=== PATIENT | female | born 2000 | race Caucasian/White ===

== ENCOUNTER 2022-05-08 14:43 | Outpatient (REF) | payer MEDICAID, SELFPAY ==
[2022-05-10 11:01] LABS: COVID-19 RT-PCR UVMMC Result Negative (Negative)
== END 2022-05-08 14:44 | disposition home or self-care (01) ==
LOC: LBN 14:43
PROVIDERS: Visit Provider Nurse Practitioner Family
DX: Z20.822 Contact with and (suspected) exposure to COVID-19 (principal); J06.9 Acute upper respiratory infection, unspecified
CPT/HCPCS: U0003

== ENCOUNTER 2023-08-05 17:36 | Emergency (ER) | payer MEDICAID, SELFPAY ==
[2023-08-05 17:38] VITALS: PULSE 111; RESP 15; TEMP 37.1; O2SAT 99
[2023-08-05 19:01] LABS: Abs Immature Grans 0.03 10^3/uL (0.0-0.06); Absolute Basophil Count 0.06 10^3/uL (0.0-0.2); Absolute Eosinophil Count 0.17 10^3/uL (0.0-0.7); Absolute Lymphocyte Count 2.08 10^3/uL (1.2-3.4); Absolute Monocyte Count 0.33 10^3/uL (0.1-0.8); Absolute Neutrophil Count 5.05 10^3/uL (1.2-6.7); Basophils % 0.8; Eosinophils % 2.2; HGB 13.7 g/dL (11.2-15.7); Immature Grans % 0.4; Lymphocytes % 26.9; MCH 29.6 pg (27.0-33.0); MCHC 34.3 % (32.0-36.0); MCV 86 fL (80-95); MPV 10.6 fL (8.0-11.0); Monocytes % 4.3; Neutrophils % 65.4; Platelet Count 292 10^3/uL (130-400); RBC 4.63 10^6/uL (3.93-5.22); RDW 12.3 % (11.7-14.6); RDW-SD 38.8 fL; WBC 7.72 10^3/uL (4.4-10.8)
[2023-08-05 19:22] LABS: ALT 22 U/L (14-59); AST 16 U/L (15-37); Albumin 4.4 g/dL (3.4-5.0); Alkaline Phosphatase 76 U/L (46-116); Anion Gap 13.7 mmol/L (3-11); BUN 10 mg/dL (7-18); Bilirubin, Total 0.5 mg/dL (0.2-1.0); CO2 22.3 mmol/L (21.0-32.0); CREATININE 0.8 mg/dL (0.55-1.02); Calcium 9.7 mg/dL (8.5-10.1); Chloride 104 mmol/L (98-107); Estimated GFR 106.11 (mL/min/1.73m2); Glucose 95 mg/dL (74-106); HCG Quant, Pregnancy 62 mIU/mL (1-3); Potassium 3.1 mmol/L (3.5-5.1); Sodium 140 mmol/L (136-145); Total Protein 8.4 g/dL (6.4-8.2)
--- NOTE | 2023-08-05 19:59 | W.ED.GENAD ---
Discharge Plan Disposition Patient Disposition: Home Discharge Details Clinical Impression: Positive blood test Primary Care Provider: Amy Motley ED Provider: Ford Alberto Home Meds and New Rx's Prescriptions: No Action escitalopram oxalate [Lexapro] 20 mg tablet 20 mg PO DAILY Discharge Instructions Instructions: (ED) Additional Instructions: It is very important that you start vitamins right away and take as directed on packaging. We have placed a referral into [facility] but you may contact them and inform them of your positive test so they can arrange appropriate care As discussed if you decide to stop your Lexapro please contact your primary care provider so that this can be done safely. Referrals: [facility] [Provider Group] (Please call the office and inform them of your positive test for arrangement of further care) Discharge Data Discharge Date/Time-TO BE ENTERED AT DEPARTURE: 08/05/23 20:07 Medical Decision Making Patient presenting to the emergency department due to having positive test. She states that she has taken to test prior to arrival that were both positive. She states approximately 4 weeks ago she had a abnormal. With only light bleeding. Over the past week she states she has been more emotional, had increased breast tenderness, and today started having some nausea during eating. Patient denies any vaginal bleeding or discharge, denies all other symptoms. Physical exam is unremarkable. Patient denies any pain or discomfort. Bedside ultrasound was utilized and it did appear that something was in the uterus but difficult to see. Given patient having abnormal. And new we will check blood work. Reviewed patient's labs and patient did have slightly low potassium which she states she will increase dietary intake, labs otherwise nonworrisome. Patient did have hCG of 62 so I estimate that she has between 2 and 3 weeks along given good reason for not being able to see much on ultrasound. Discussed findings with patient which she was appropriately excited. Did go over that she should start vitamins. Patient did ask about her Lexapro. She states that she has not taken it for the past 3 days. I did recommend that she discuss this with primary care provider as we typically would taper medication but she stated she had stopped cold turkey in the past and did not want to take any further medications while . I still recommended discussing with primary care provider. Patient placed upon follow-up list with [facility] to establish care. After discussion of diagnosis and plan of care patient has no further needs, questions, or concerns and states clear understanding to return to the emergency department for any worsening symptoms. This documentation was generated using [employer] dictation system, please disregard any oddities of phrase or misspellings. Lab Data Lab results reviewed: Yes I reviewed the patient's lab results. HPI General Mode of arrival: ambulatory. Date/Time Provider Initiated Documentation: 08/05/23 17:55. Limitations to Documentation: no limitations. Information obtained by: patient and RN notes reviewed. History of Present Illness 23 year old F presents to the emergency department with the chief complaint of Positive test, Patient started experiencing this hour(s) (1) Patient did receive the following treatments prior to arrival, none Related Data Home Medications Medication Instructions Recorded Confirmed escitalopram oxalate 20 mg tablet 20 mg PO DAILY 08/05/23 08/05/23 (Lexapro) Allergies Allergy/AdvReac Type Severity Reaction Status Date / Time amoxicillin Allergy Mild Skin Rash Unverified 08/05/23 17:49 General Stated Complaint: [employer]PRENTICE JEANETTE: 4 Review of Systems Gastrointestinal Gastrointestinal: Reports nausea and Denies vomiting Genitourinary Genitourinary: Reports as per HPI, Denies abnormal vaginal bleeding, Denies hematuria, Denies dysuria, Denies pelvic pain, Denies urinary incontinence and Denies vaginal discharge PFSH All Active Problems (Updated 08/05/23 @ 20:02 by Ford Alberto NP) Positive blood test (Acute) Social History Smoking/Tobacco Use Status: Never Smoking risk assessment performed?: Yes Alcohol Intake: never Drug use: Never Substance use type: does not use Do you feel safe at home: Yes Do you feel safe in your relationship?: Yes Exam Const General: cooperative, no acute distress and not ill appearing Orientation: alert, awake and oriented x3 HENMT Mouth: moist mucous membranes Resp Effort & Inspection: normal respiratory effort, able to speak in complete sentences and no respiratory distress GI Inspection: normal to inspection Palpation: soft, not firm, no guarding and nontender Neuro General: patient alert, patient awake, patient oriented x3 and moves all extremities Course Vital Signs Vital signs: Vital Signs Temperature 37.1 C 08/05/23 17:38 Pulse 111 H 08/05/23 17:38 Respiratory Rate 15 08/05/23 17:38 Pulse Oximetry 99 08/05/23 17:38 Temperature 37.1 C 08/05/23 17:38 Temperature Source Temporal Artery Scan 08/05/23 17:38 Pulse 111 H 08/05/23 17:38 Respiratory Rate 15 08/05/23 17:38 Respiratory Effort Normal 08/05/23 17:45 Blood Pressure Position Sitting 08/05/23 17:38 Pulse Oximetry 99 08/05/23 17:38 Oxygen Delivery Method Room Air 08/05/23 17:38 Oxygen Flow Rate 0 08/05/23 17:38 Pain Level 0 08/05/23 17:38 Lab/Test Results Lab/Test Results: Laboratory Tests Range/Units 08/05/23 18:21 WBC (4.4-10.8) 10^3/uL 7.72 RBC (3.93-5.22) 10^6/uL 4.63 Hgb (11.2-15.7) g/dL 13.7 Hct (36.0-46.0) % 40.0 MCV (80-95) fL 86 MCH (27.0-33.0) pg 29.6 MCHC (32.0-36.0) % 34.3 RDW (11.7-14.6) % 12.3 Plt Count (130-400) 10^3/uL 292 MPV (8.0-11.0) fL 10.6 Immature Gran % 0.4 Neutrophils % 65.4 Lymphocytes % 26.9 Monocytes % 4.3 Eosinophils % 2.2 Basophils % 0.8 Nucleated RBC % (0.0-0.3) % 0.0 Absolute Neutrophils (1.2-6.7) 10^3/uL 5.05 Absolute Lymphocytes (1.2-3.4) 10^3/uL 2.08 Absolute Monocytes (0.1-0.8) 10^3/uL 0.33 Absolute Eosinophils (0.0-0.7) 10^3/uL 0.17 Absolute Basophils (0.0-0.2) 10^3/uL 0.06 Sodium (136-145) mmol/L 140 Potassium (3.5-5.1) mmol/L 3.1 L Chloride (98-107) mmol/L 104 Carbon Dioxide (21.0-32.0) mmol/L 22.3 Anion Gap (3-11) mmol/L 13.7 H BUN (7-18) mg/dL 10 Creatinine (0.55-1.02) mg/dL 0.8 Est GFR (CKD-EPI 2020) (mL/min/1.73m2) 106.11 Glucose (74-106) mg/dL 95 Calcium (8.5-10.1) mg/dL 9.7 Total Bilirubin (0.2-1.0) mg/dL 0.5 AST (15-37) U/L 16 ALT (14-59) U/L 22 Alkaline Phosphatase (46-116) U/L 76 Total Protein (6.4-8.2) g/dL 8.4 H Albumin (3.4-5.0) g/dL 4.4 Beta HCG, Quant (1-3) mIU/mL 62 H Patient ABO/Rh A Positive
--- NOTE | 2023-08-06 05:36 | NUR.NOTE ---
Pt placed on care management referral list for [facility] with [facility] week.
== END 2023-08-05 20:07 | disposition home or self-care (01) ==
PROVIDERS: Emergency Provider Nurse Practitioner Family; PCP Nurse Practitioner Family
DX: Z32.01 Encounter for pregnancy test, result positive (principal)
CPT/HCPCS: 80053; 86900; 86901; 99282; 84702; 85025

== ENCOUNTER 2023-09-16 04:10 | Outpatient (CLI) | payer MEDICAID, SELFPAY ==
[2023-09-16 11:00] LABS: Abs Immature Grans 0.01 10^3/uL (0.0-0.06); Absolute Basophil Count 0.05 10^3/uL (0.0-0.2); Absolute Eosinophil Count 0.24 10^3/uL (0.0-0.7); Absolute Lymphocyte Count 1.66 10^3/uL (1.2-3.4); Absolute Monocyte Count 0.45 10^3/uL (0.1-0.8); Absolute Neutrophil Count 5.22 10^3/uL (1.2-6.7); Basophils % 0.7; Eosinophils % 3.1; HCT 36.8 % (36.0-46.0); HGB 12.8 g/dL (11.2-15.7); Immature Grans % 0.1; Lymphocytes % 21.8; MCH 30.2 pg (27.0-33.0); MCHC 34.8 % (32.0-36.0); MCV 87 fL (80-95); MPV 10.1 fL (8.0-11.0); Monocytes % 5.9; Neutrophils % 68.4; Platelet Count 268 10^3/uL (130-400); RBC 4.24 10^6/uL (3.93-5.22); RDW 11.8 % (11.7-14.6); RDW-SD 37.1 fL; WBC 7.63 10^3/uL (4.4-10.8)
[2023-09-16 11:10] LABS: Glucose,1 Hr (Glucola) 108 mg/dL (80-140)
[2023-09-16 11:24] LABS: TSH (W/Ref FT4) 1.63 uIU/mL (0.36-3.74)
[2023-09-17 10:06] LABS: Varicella IgG Antibody Positive (See Note)
[2023-09-17 10:18] LABS: Rubella IgG Ab (UVM) Positive (See Note)
[2023-09-17 10:56] LABS: Hepatitis C Ab w Rflx HCV PCR Negative (Negative)
[2023-09-17 11:14] LABS: HIV-1/2 Ag & Ab Screen Negative (Negative)
[2023-09-17 11:29] LABS: Hepatitis B Surface Ag Negative (Negative)
[2023-09-18 22:04] LABS: Syphilis IgG w/Reflex Nonreactive (Nonreactive)
[2023-09-26 15:42] LABS: Result Summary NEGATIVE; Specimen WB Whole Blood
== END 2023-09-16 04:11 | disposition home or self-care (01) ==
LOC: LBO 04:10
PROVIDERS: PCP Nurse Practitioner Family; Visit Provider Advanced Practice Midwife
DX: Z34.91 Encounter for supervision of normal pregnancy, unspecified, first trimester
CPT/HCPCS: 36415; 81220; 81222; 82950; 86787; 86803; 86850; 86900; 86901; 87340; 87389; 84443; 85025; 86762; 86780

== ENCOUNTER 2023-09-16 10:42 | Outpatient (REF) | payer MEDICAID, SELFPAY ==
--- NOTE | 2023-09-16 10:00 | PAPFT_PTH ---
PATIENT: Wesley Marsh LOC: [facility] U#:[id number] AGE/SX: 23/F ROOM: RE09/16/[address]: Karen Willett CNM : 2000 BED: DIS: 09/16/2023 SPEC #: [id number] RECD: 09/16/23 12:41 STATUS: TONY RERuth #: [id number] LOIUSA: 09/16/23 10:[address]: Karen Willett [facility] Cytology RECD BY: Toyin Gee ENTERED: 09/16/23 12:41 SP TYPE: PAPFT OTHR DR: Amy Motley Tissues: 1 - CX/ENDOCX FOR PAP SMEARS Procedures: PAP THIN PREP/UVM Screening Comments: [id number] (CHLAMYDIA/GC)
[2023-09-16 11:48] LABS: *AMPHETAMINES SCREEN URINE Negative (Negative); *BARBITURATES SCREEN URINE Negative (Negative); *BENZODIAZEPINES SCREEN URINE Negative (Negative); Cannabinoids THC Positive (Negative); Cocaine Screen,Urine Negative (Negative); METHADONE URINE SCREEN Negative (Negative); OPIATES URINE SCREEN Negative (Negative)
[2023-09-16 11:49] LABS: Tricyclic Antidepressants Negative (Negative)
[2023-09-17 13:57] LABS: Chlamydia Result Negative (Negative); GC Result Negative (Negative)
[2023-09-20 12:16] LABS: Buprenorphine Negative ng/mL (Cutoff: 5.0); Norbuprenorphine Negative ng/mL (Cutoff: 2.5)
== END 2023-09-16 10:43 | disposition home or self-care (01) ==
LOC: LBN 10:42
PROVIDERS: PCP Nurse Practitioner Family; Visit Provider Advanced Practice Midwife
DX: Z34.91 Encounter for supervision of normal pregnancy, unspecified, first trimester
CPT/HCPCS: 80307; 80348; 87491; 87591; 88142; 87086

== ENCOUNTER 2023-09-23 04:46 | Outpatient (CLI) | payer MEDICAID, SELFPAY ==
[2023-09-23 15:18] LABS: Panorama Kit Sent via Fed Ex
== END 2023-09-23 04:47 | disposition home or self-care (01) ==
LOC: LBO 04:46
PROVIDERS: Advanced Practice Midwife; PCP Nurse Practitioner Family; Visit Provider Advanced Practice Midwife
DX: Z34.91 Encounter for supervision of normal pregnancy, unspecified, first trimester (principal)
CPT/HCPCS: 36415

== ENCOUNTER → 2023-11-25 00:54 | Outpatient (CLI) | payer MEDICAID, SELFPAY ==
--- NOTE | 2023-11-25 08:00 | DI.US_ITS ---
Exam(s) US OB 2-3 TRIMESTER EXAM: US OB 2-3 TRIMESTER CLINICAL HISTORY: 19 wk anatomy survey,z34.90. TECHNIQUE: Transabdominal obstetrical ultrasound performed. COMPARISON: US POCUS EXAM from 08/28/2023 FINDINGS: Number of fetuses: One. position: Variable Placental grade: 1 Placental location: Fundal/anterior. No evidence of previa. BIOMETRIC DATA: BPD: 42mm = 18+ 6 weeks HC: 170mm = 19+ 4 weeks AC: 146mm = 19+ 6 weeks FL: 32mm = 19+ 6 weeks Cisterna Magna: 2.5 mm Cerebellum: 1.8 cm EFW: 317 grms 71% Composite Age: 19+ 4 weeks EDC by US: 16 April 2024 Heart Rate: 148BPM Amniotic fluid : Amount of fluid is within normal limits. ANATOMICAL SURVEY: Four-chambered heart: Unremarkable. LVOT: Unremarkable. RVOT: Unremarkable. Left-sided stomach: Unremarkable. urinary bladder: Unremarkable. Bilateral kidneys: Unremarkable. Three-vessel cord: Unremarkable. Cord insertion: Unremarkable. Posterior fossa:Unremarkable. ventricles: Unremarkable. nose: Unremarkable. lips: Unremarkable. palate: Unremarkable. spine: Unremarkable. Two arms and two legs: Unremarkable. IMPRESSION: 1. Single live intrauterine gestation with composite age 19+ 4 weeks. 2. Normal anatomic survey. DATA REPOSITORY:
== END ==
PROVIDERS: PCP Nurse Practitioner Family; Visit Provider Advanced Practice Midwife
DX: Z34.92 Encounter for supervision of normal pregnancy, unspecified, second trimester (principal)
CPT/HCPCS: 76805

== ENCOUNTER 2024-01-27 11:06 | Outpatient (REF) | payer MEDICAID, SELFPAY ==
[2024-01-27 12:22] LABS: *AMPHETAMINES SCREEN URINE Negative (Negative); *BARBITURATES SCREEN URINE Negative (Negative); *BENZODIAZEPINES SCREEN URINE Negative (Negative); Cannabinoids THC Negative (Negative); Cocaine Screen,Urine Negative (Negative); METHADONE URINE SCREEN Negative (Negative); OPIATES URINE SCREEN Negative (Negative)
[2024-01-27 12:31] LABS: Tricyclic Antidepressants Negative (Negative)
[2024-01-28 12:03] LABS: Fentanyl Scr w/Rfx Confirm Negative ng/mL (<1)
[2024-01-31 08:13] LABS: Buprenorphine Negative ng/mL (Cutoff: 5.0); Norbuprenorphine Negative ng/mL (Cutoff: 2.5)
== END 2024-01-27 11:07 | disposition home or self-care (01) ==
LOC: LBN 11:06
PROVIDERS: PCP Nurse Practitioner Family; Visit Provider Advanced Practice Midwife
DX: Z34.90 Encounter for supervision of normal pregnancy, unspecified, unspecified trimester (principal)
CPT/HCPCS: 80307; 80348

== ENCOUNTER 2024-01-27 12:59 | Outpatient (CLI) | payer MEDICAID, SELFPAY ==
[2024-01-27 12:18] LABS: HCT 32.2 % (36.0-46.0); HGB 10.9 g/dL (11.2-15.7); MCH 29.2 pg (27.0-33.0); MCHC 33.9 % (32.0-36.0); MCV 86 fL (80-95); MPV 10.7 fL (8.0-11.0); Platelet Count 250 10^3/uL (130-400); RBC 3.73 10^6/uL (3.93-5.22); RDW 11.9 % (11.7-14.6); RDW-SD 37.2 fL; WBC 9.44 10^3/uL (4.4-10.8)
[2024-01-27 12:39] LABS: Glucose,1 Hr (Glucola) 137 mg/dL (80-140)
== END 2024-01-27 13:00 | disposition home or self-care (01) ==
LOC: LBO 13:00
PROVIDERS: PCP Nurse Practitioner Family; Visit Provider Advanced Practice Midwife
DX: Z34.93 Encounter for supervision of normal pregnancy, unspecified, third trimester (principal); Z3A.28 28 weeks gestation of pregnancy
CPT/HCPCS: 36415; 82950; 85027

== ENCOUNTER 2024-02-03 08:56 | Outpatient (CLI) | payer MEDICAID, SELFPAY ==
[2024-02-03 09:25] VITALS: BP 123/73; PULSE 100; TEMP 37
[2024-02-03 09:44] VITALS: BP 123/73; PULSE 100
--- NOTE | 2024-02-12 14:14 | W.OBNST ---
Date of service: 02/03/24 Time of Service: 22:30 NST Evaluation Reason for NST Reasons for Nonstress Test: OTHER, SEE COMMENT Reason for NST Other: well being Gestational Age Gestational Age in Weeks and Days: 42 Weeks and 3Days Test and Monitor Explained Test/Monitor Explained: Test Explained, Monitor Explained and Patient Verbalized Understanding Vital Signs Blood Pressure: 123/73 Pulse: 100 Temperature: 98.6 F NST Information Date on Monitor: 02/03/24 Time on Monitor: 09:20 Date off Monitor: 02/03/24 Time off Monitor: 10:15 Total Time on Monitor: 55 NST Interventions: PO Hydration NST Evaluation Patient States Movement: Present FHR Baseline: 150 Variability: Moderate 6-25 bpm Accelerations: 15x15 Decelerations: None NST Results: Reactive Note Ultrasound Done: N/A. NST Note Note: Reactive and reassuring NST. JAGRUTI NST Reviewed and Verified by: Idalia Nevarez
[2024-02-12 14:15] VITALS: BP 123/73; PULSE 100; TEMP 37
== END 2024-02-03 10:15 | disposition home or self-care (01) ==
LOC: BCD 08:59 → OBS 09:22
PROVIDERS: PCP Nurse Practitioner Family; Visit Provider Advanced Practice Midwife
DX: Z34.03 Encounter for supervision of normal first pregnancy, third trimester (principal); Z3A.30 30 weeks gestation of pregnancy
CPT/HCPCS: 59025

== ENCOUNTER 2024-02-04 05:00 | Outpatient (CLI) | payer MEDICAID, SELFPAY ==
[2024-02-04 08:53] LABS: Glucose 1 Hour 170 mg/dL
== END 2024-02-04 05:01 | disposition home or self-care (01) ==
LOC: LBO 05:00
PROVIDERS: PCP Nurse Practitioner Family; Visit Provider Advanced Practice Midwife
DX: Z34.93 Encounter for supervision of normal pregnancy, unspecified, third trimester (principal); Z3A.28 28 weeks gestation of pregnancy
CPT/HCPCS: 36415; 82951

== ENCOUNTER → 2024-03-18 01:41 | Outpatient (CLI) | payer MEDICAID, SELFPAY ==
--- NOTE | 2024-03-18 06:45 | DI.US_ITS ---
Exam(s) US OB EDILIA WEIGHT EXAM: US OB EDILIA WEIGHT CLINICAL HISTORY: EFW/EDILIA, gest diabetes mellitus, O24.419. TECHNIQUE: Transabdominal obstetrical ultrasound performed. COMPARISON: US US OB 2-3 TRIMESTER from 11/25/2023 FINDINGS: Number of fetuses: 1 position: BREECH Placental location: There is a grade 2 anterior and fundal placenta. No evidence of previa. BIOMETRIC DATA: BPD: 8.82cm, 35weeks 5days HC: 34.07cm, 39weeks 2days AC: 31.88cm, 35weeks 6days FL: 6.98cm, 35weeks 6days EFW: 2,860.65g, 6lb 4.97oz, 62.3% Composite Age: 36weeks 5days LYN: 04/10/2024 Heart Rate: 148bpm Amniotic fluid index: 11.18cm. The largest pocket is 4.7 cm. IMPRESSION: 1. Single live intrauterine gestation as above. 2. Estimated weight is 2861gms. This is the 62nd percentile. 3. Amniotic fluid index is 11.2 cm. The largest pocket is 4.7 cm. DATA REPOSITORY:
== END ==
PROVIDERS: PCP Nurse Practitioner Family; Visit Provider Advanced Practice Midwife
DX: O24.414 Gestational diabetes mellitus in pregnancy, insulin controlled (principal); O32.1XX0 Maternal care for breech presentation, not applicable or unspecified; Z3A.36 36 weeks gestation of pregnancy
CPT/HCPCS: 76816

== ENCOUNTER 2024-03-18 09:01 | Outpatient (REF) | payer MEDICAID, SELFPAY | END 2024-03-18 09:02 | disposition home or self-care (01) | LOC: LBN 09:01 | PROVIDERS: PCP Nurse Practitioner Family; Visit Provider Obstetrics & Gynecology Gynecology | DX: Z34.93 Encounter for supervision of normal pregnancy, unspecified, third trimester (principal); Z36.85 Encounter for antenatal screening for Streptococcus B; Z3A.35 35 weeks gestation of pregnancy | CPT/HCPCS: 87081 ==

== ENCOUNTER 2024-03-25 07:18 | Observation (INO) | payer MEDICAID, SELFPAY ==
[2024-03-25 07:55] VITALS: BP 139/84; PULSE 85; RESP 16; TEMP 36.8; O2SAT 98
--- NOTE | 2024-03-25 08:18 | W.OBVERSION ---
Date of service: 03/25/24 Time of Service: 16:58 Version Note Version Note DATE OF PROCEDURE: 03/25/24 PRE-OP DIAGNOSES: Marcela breech presentation POST-OP DIAGNOSES: same PROCEDURE: unsuccessful external cephalic versiont 36w5d EGA. SURGEON: Mary Sanchez Assisting Surgeon: Cleo Uribe Anesthesia: none Complications: None Patient was transported to: no change Patient's condition: stable Indications: Marcela breech presentation diagnosed at 34w EGA. Pt counseled regarding risks of procedure vs benefits if successful. She signed an informed consent and her questions were answered. Findings: Bedside TA u/s. Viable terrazas fetus in marcela breech presentation with head and spine on maternal left. Procedure Description: After informed consent was obtained the pt had a reactive NST and breech presentation was confirmed by bedside transabdominal ultrasound. She received Terbutaline 0.25mg sq and after a half an hour she was placed in the dorsal supine position. Ultrasound gel was applied to the patient's abdomen and the hand inserter operator on the patient's left side placed the fingertips of both hands behind the symphysis pubis to elevated the presenting part from the pelvis to a position above the sacral promontory. Simultaneous to the elevation of the breech from the the pelvis the hand inserter operator on the patient's right side placed the fingertips of the right hand behind the head and directs the head in a forward somersault. After the hand inserter operator's hands had moved in a counter clockwise direction the position was examined with the transabdominal ultraound and the breech was confirmed. FHT asculatated and in 140 range. breathing motion detected on transabdominal ultrasound. After a period of two minutes of rest another attempt the external cephalic version was performed, this time in a backward somersault. Unfortunately this did not result in a change in the breech presentation as demonstrated by application of the ultrasound probe to the abdominal wall. well being was assured by auscultation of the heart tones but doppler. The procedure was halted and the heart rate monitored by NST for 45 minutes prior to discharge from the unit. The patient tolerated the procedure well. She was counseled about plan for scheduling a primary delivery. Version Outcome: Confirmed via Ultrasound and Failed Pre/Post Procedure NST Pre-Procedure NST Time on Monitor: 55 Patient States Movement: Present FHR Baseline: 140 Variability: Marked >25 bpm Decelerations: None NST Results: Reactive Post Procedure NST Contraction Frequency: occasional Patient States Movement: Present and Increased FHR Baseline: 150 Variability: Marked >25 bpm Decelerations: None NST Results: Reactive Version Ultrasound Ultrasound Performed Ultrasound Image Saved: No Pre-Procedure Ultrasound Placental Location: Fundal Presentation: Marcela Breech Post Procedure Ultrasound Placental Location: Fundal Presentation: Marcela Breech Heart Rate: 150
[2024-03-25 08:23] LABS: HCT 35.5 % (36.0-46.0); HGB 11.7 g/dL (11.2-15.7); MCH 29.5 pg (27.0-33.0); MCV 89 fL (80-95); MPV 10.5 fL (8.0-11.0); Platelet Count 198 10^3/uL (130-400); RBC 3.97 10^6/uL (3.93-5.22); RDW 14.9 % (11.7-14.6); WBC 6.35 10^3/uL (4.4-10.8)
[2024-03-25] MEDS: Normal Saline Flush 10 ML SYR IVP ×2 (08:30→13:31)
--- NOTE | 2024-03-25 08:41 | W.ANESPRE ---
General Info Date of Service Date Performed: 03/25/24 Height: 5 ft 1 in Weight: 88.904 kg Body Mass Index (BMI): 37.0 Surgical Procedure: Operation Date: 03/25/24 08:55 Proposed Procedure Side Surgeon p Version Mary Sanchez MD Meds Allergies and Home Medications Allergies Allergy/AdvReac Type Severity Reaction Status Date / Time amoxicillin Allergy Mild Skin Rash Verified 03/23/24 13:04 Home Medication Medication Instructions Recorded vitamin no.180-ferrous 1 tab PO DAILY #90 tabs 08/28/23 fumarate 27 mg-folic acid 1 mg tablet ( Plus Vitamin-Mineral) ferrous sulfate 325 mg (65 mg 325 mg PO Q OTHER DAY #90 tabs 01/27/24 iron) tablet blood sugar diagnostic (FreeStyle #100 ea 02/04/24 Lite Strips) blood-glucose meter (FreeStyle #1 ea 02/04/24 Lite Meter kit) lancets 28 gauge (FreeStyle #100 ea 02/04/24 Lancets) insulin NPH isoph U-100 human 100 10 unit (0.1 mL) subcut QHS 02/26/24 unit/mL (3 mL) subcutaneous pen Gestational Diabetes #15 mL (Humulin N NPH U-100 Insulin KwikPen) pen needle, diabetic 31 gauge x #100 ea 02/28/2410/17 (1st Tier Unifine Pentips Plus) escitalopram oxalate 10 mg tablet 10 mg PO DAILY #30 tabs 03/04/24 (Lexapro) Current Visit Medications: Current Medications Generic Name Dose Route Start Last Admin Trade Name Freq PRN Reason Stop Dose Admin Escitalopram Oxalate 10 mg 03/25/24 08:30 Escitalopram 10 Mg Tab PO 04/24/24 08:29 DAILY JONY Ferrous Sulfate 325 mg 03/25/24 08:00 Ferrous Sulfate 325 Mg Tab PO 04/24/24 07:59 Q OTHER DAY JONY Ringer's Solution 1,000 mls @ 0 mls/hr 03/25/24 07:30 IV 04/24/24 07:29 INFUSION [facility] Per Protocol IV Miscellaneous Supplies 1 each 03/25/24 07:30 Iv Access IV 04/24/24 07:29 DIRECTED JONY Insulin Human NPH 10 unit 03/25/24 08:00 Insulin Nph-Human 300 Units/3 Ml Pen SC 04/24/24 07:59 QHS JONY Non-Formulary Medication 1 tab 03/25/24 08:30 Vit No.[id number] [ Plus Vitamin-Mineral] PO 04/24/24 08:29 DAILY JONY Sodium Chloride 0 ml 03/25/24 07:18 Normal Saline Flush 10 Ml Syr IVP 04/24/24 07:17 PRN PRN Sodium Chloride 0 ml 03/25/24 08:30 Normal Saline Flush 10 Ml Syr IVP 04/24/24 08:29 BID JONY Sodium Chloride 0 ml 03/25/24 07:18 Normal Saline 10 Ml Vial IJ 04/24/24 07:17 DIRECTED PRN Terbutaline Sulfate 0.25 mg 03/25/24 08:00 Terbutaline 1 Mg/Ml Vial SC 04/24/24 07:59 DIRECTED [facility] Active Problems Active Problems: Problem Status Onset Code Gestational diabetes mellitus (GDM) affecting , antepartum O24.419 Marijuana use F12.90 Anxiety and depression F41.9, F32.A Z34.90 Tobacco Smoking/Tobacco Use Status: Never Alcohol Alcohol Intake: never Substance Use Substance use: Never Substance use type: does not use Prental History History 1 Para 0 Hx # Term Pregnancies 0 Multiple births 0 Hx # Pregnancies 0 Ectopic pregnancies 0 AB induced 0 Hx Number of Living Children 0 AB spontaneous 0 Vital Signs and Lab Results Vital Signs Most Recent Vital Signs in EMR: Most Recent Vital Signs Temp Pulse Resp BP Pulse Ox 36.8 C 85 16 139/84 98 03/25/24 07:55 03/25/24 07:55 03/25/24 07:55 03/25/24 07:55 03/25/24 07:55 Lab Results 03/25/24 08:15 Blood Type / Crossmatch: No Data to Display Complete Blood Count: White Blood Count 6.35 10^3/uL (4.4-10.8) 03/25/24 08:15 Red Blood Count 3.97 10^6/uL (3.93-5.22) 03/25/24 08:15 Hemoglobin 11.7 g/dL (11.2-15.7) 03/25/24 08:15 Hematocrit 35.5 % (36.0-46.0) L 03/25/24 08:15 Platelet Count 198 10^3/uL (130-400) 06/12/24 08:15 Complete Metabolic Panel: No Data to Display Liver Function Panel: No Data to Display Coagulation Panel: No Data to Display Cardiac Panel: No Data to Display Arterial Blood Gas: No Data to Display Venous Blood Gas: No Data to Display Pancreas Panel: No Data to Display Thyroid Panel: No Data to Display Infectious Disease: No Data to Display Blood Cultures: No Data to Display Toxicology Panel: No Data to Display Panel: No Data to Display Anesthesia Assessment and Plan Anesthesia History Personal History: No History of Anesthesia Complications Family History: No Family History of Anesthesia Complications Exercise Tolerance Exercise Tolerance: Metabolic Equivalents>4 Pertinent Negatives Pertinent Negatives: No Symptoms of GERD Cardiac & Pulmonary Exam Cardiac Exam: Normal S1/S2 Heart Sounds Pulmonary Exam: Clear Bilateral Breath Sounds Implantable Cardiac Device Does patient have a Pacemaker or an ICD?: No Airway Exam Known Difficult Airway: No Mallampati Class: 2 Mouth Opening: Normal (> 3cm) Thyromental Distance: Greater than 3 cm Neck Range of Motion: Full ROM Neck Circumference: Normal Teeth Condition: Normal Dentition ASA Classification ASA Score: ASA 2 Emergency Case?: No NPO Status NPO Status: Full Stomach Status Status: Confirmed Anesthesia Plan Resuscitation Status: Full Code Anesthesia Technique: General Anesthesia Airway Planned: Endotracheal Tube Monitors Used: Standard Monitors
[2024-03-25 08:43] VITALS: BMI 37.0
[2024-03-25 11:24] VITALS: BP 121/77; PULSE 79
[2024-03-25 11:40] VITALS: BP 121/77; PULSE 77; RESP 17; TEMP 36.8; O2SAT 98
[2024-03-25 12:54] VITALS: BP 132/76; PULSE 75; RESP 16; TEMP 36.8; O2SAT 98
[2024-03-25 13:01] VITALS: BP 132/76; PULSE 75
[2024-03-25 13:03] VITALS: PULSE 75; O2SAT 97
[2024-03-25] MEDS: Terbutaline 1 MG/ML VIAL 0.25 MG SC (13:52)
== END 2024-03-25 16:15 | disposition home or self-care (01) ==
PROVIDERS: Admitting Provider Obstetrics & Gynecology Gynecology; PCP Nurse Practitioner Family; Visit Provider Obstetrics & Gynecology Gynecology
DX: O32.1XX0 Maternal care for breech presentation, not applicable or unspecified (principal); Z3A.34 34 weeks gestation of pregnancy; O99.343 Other mental disorders complicating pregnancy, third trimester; F41.8 Other specified anxiety disorders
CPT/HCPCS: 59412; 36415; 59025; 85027; 86850; 86900; 86901; 96372; G0378; J1815; J3105

== ENCOUNTER 2024-04-08 01:53 | Outpatient (CLI) | payer MEDICAID, SELFPAY ==
[2024-04-08 15:29] LABS: HCT 36.1 % (36.0-46.0); HGB 11.9 g/dL (11.2-15.7); MCH 29.5 pg (27.0-33.0); MCV 90 fL (80-95); MPV 10.7 fL (8.0-11.0); Platelet Count 199 10^3/uL (130-400); RBC 4.03 10^6/uL (3.93-5.22); RDW 15.9 % (11.7-14.6); RDW-SD 52.1 fL; WBC 8.48 10^3/uL (4.4-10.8)
[2024-04-08 16:39] LABS: Anion Gap 12.7 mmol/L (3-11); CO2 18.3 mmol/L (21.0-32.0); Chloride 108 mmol/L (98-107); Potassium 3.9 mmol/L (3.5-5.1); Sodium 139 mmol/L (136-145)
== END 2024-04-08 01:54 | disposition home or self-care (01) ==
LOC: LBO 01:53
PROVIDERS: PCP Nurse Practitioner Family; Visit Provider Obstetrics & Gynecology Gynecology
DX: Z01.818 Encounter for other preprocedural examination (principal)
CPT/HCPCS: 36415; 80051; 85027; 86850; 86900; 86901

== ENCOUNTER 2024-04-09 06:00 | Inpatient (IN) | payer MEDICAID, SELFPAY ==
--- NOTE | 2024-04-08 18:52 | HPE_ITS ---
Date of service: 04/08/24 Time of Service: 18:52 Assessment and Plan Assessment and plan (1) Breech presentation: Status: Acute Qualifiers: Fetus number: single or unspecified fetus Qualified Code(s): O32.1XX0 - Maternal care for breech presentation, not applicable or unspecified (2) Failed external cephalic version: Status: Acute Assessment and plan: 03/25/2024. External cephalic version was attempted and was not successful. Patient was counseled regarding and accepted planned delivery. (3) Gestational diabetes mellitus (GDM) affecting , antepartum: Status: Acute Assessment and plan: Diet controlled no complications (4) Preoperative examination: Status: Acute Assessment and plan: Preop counseling: She was informed of the risks of procedure including risk of damage to bowel, bladder, and blood vessels during the time of the delivery. If any of those injuries were to occur she may require a repair at the time of surgery or blood transfusion or possible hysterectomy. I reviewed the risk of infection and the administration of IV Abx prior to the surgery. By virtue of having a LTCS for breech presentation she would be a candidate for a CARMEN/ in the future. OB-HPI Labor/Delivery History of Present Illness Chief Complaint: Scheduled Section , Inidcation for Scheduled C- Section: Unsuccessful Version.. LYN Calculator Estimated Delivery Date Method Current WG Current Estimate 04/17/24 Ultrasound #1 38w 5d Other Estimates 04/20/24 LMP (Uncertain) 38w 2d History of Present Expected Delivery Route/Plan - CNM, to MD rosales for insulin GDM FOB/boyfriend - Robert Saez (first child) BG Wants to use labor tub, FOB & pt's mom Ginny are supports Specific Issues/Plan 1. BMI 31, early [id number]. 28 wk qmhsnyb=333, 3h GTT-97, 170 then vomited, will start QID testing at home. 1a. At 31 wks, meets GDM criteria based on 2 wks QID testing, will continue monitoring and make diet changes 1b. GDM - start insulin therapy @ 32 wks with NPH 10 units at HS 02/26/24. 03/18/24. NPH decreased to 6units at bedtime > Nl CBGs. 2. Depression/anxiety, stopped Lexpro early preg. Restart 33wks. 3. Low dose ASA d/t nulliparity and BMI, not taking aspirin 4. UDS +THC, discussed w/pt (pt stopped use), repeat UDS 28 wks- neg 5. Genetic screening options, Panorama - WNL. CF - neg 6. Breech on u/s 03/18/24. ECV: 03/25/24 unsuccessful. Assessment: History Reviewed & Current Informed Consent Informed Consent: Section Delivery and Risk,Benefits,Alternatives Discussed Review of Systems Narrative: Somatic complaints poor sleep patient reports good movement All systems reviewed & are unremarkable except as noted in HPI and below PFSH All Active Problems (Updated 04/08/24 @ 19:02 by Mary Sanchez MD) Preoperative examination (Acute) Failed external cephalic version (Acute) Breech presentation (Acute) Gestational diabetes mellitus (GDM) affecting , antepartum (Acute) Marijuana use (Acute) Anxiety and depression (Chronic) (Acute) Family History (Updated 02/26/24 @ 08:52 by Idalia Farr CNM) Maternal Grandfather Diabetes Maternal Cousin Diabetes Type 1 Social History Smoking/Tobacco Use Status: Never Smoking risk assessment performed?: Yes Alcohol Intake: never Drug use: Never Substance use type: does not use Housing: house Do you feel safe at home: Yes Do you feel safe in your relationship?: Yes History History 1 Para 0 Hx # Term Pregnancies 0 Multiple births 0 Hx # Pregnancies 0 Ectopic pregnancies 0 AB induced 0 Hx Number of Living Children 0 AB spontaneous 0 Meds Allergies and Home Medications Allergies Allergy/AdvReac Type Severity Reaction Status Date / Time amoxicillin Allergy Mild Skin Rash Verified 04/08/24 14:47 Home Medications Medication Instructions Recorded Confirmed Type vitamin no.180-ferrous 1 tab PO DAILY #90 tabs 08/28/23 03/30/24 Rx fumarate 27 mg-folic acid 1 mg tablet ( Plus Vitamin-Mineral) ferrous sulfate 325 mg (65 mg 325 mg PO Q OTHER DAY #90 tabs 01/27/24 03/30/24 Rx iron) tablet blood sugar diagnostic (FreeStyle #100 ea 02/04/24 03/30/24 Rx Lite Strips) blood-glucose meter (FreeStyle #1 ea 02/04/24 03/30/24 Rx Lite Meter kit) lancets 28 gauge (FreeStyle #100 ea 02/04/24 03/30/24 Rx Lancets) insulin NPH isoph U-100 human 100 10 unit (0.1 mL) subcut QHS 02/26/24 03/30/24 Rx unit/mL (3 mL) subcutaneous pen Gestational Diabetes #15 mL (Humulin N NPH U-100 Insulin KwikPen) pen needle, diabetic 31 gauge x #100 ea 02/28/24 03/30/24 Rx 1/4 (1st Tier Unifine Pentips Plus) escitalopram oxalate 10 mg tablet 10 mg PO DAILY #30 tabs 03/04/24 03/30/24 Rx (Lexapro) Exam Physical Exam Vital Signs Reviewed: Yes Constitutional Constitutional: no acute distress Detailed Labor and Delivery Exam Delatorre Score: Cervical Points Exam 0 1 2 3 Dilation Closed 1-2cm 3-4 cm 5-6cm Effacement 0-30% 40-50% 60-70% 80% Consistency Firm Medium Soft Station -3 -2 -1,0 +1,+2 Position Posterior Mid Anterior Fetus A Heart Rate Baseline: 151 Presentation: Breech ( spine towards mother's diaphragm) Est. Weight: 7 lb 11.459 oz HEENT Exam HEENT Exam: Normal Neck Exam Neck Exam: Normal Chest/Brest/Axilla Exam Chest Exam: Not Done Breast Exam Breast Exam: Not Done Respiratory Exam Respiratory Exam: Normal (Lungs clear to auscultation bilaterally) Cardiovascular Exam Cardiovascular Exam: Normal (Heart regular rate and rhythm) Abdominal Exam Abdominal Exam: Normal (Gravid no right upper quadrant tenderness) Rectal Exam Rectal Exam: Not Done Exam Exam: Not Done Extremities Exam Extremities Exam: Normal (2+ DTRs no clonus) Back/Spine/Pelvis Exam Back Exam: Not Done Pelvis Adequate: No Skin Exam Skin Exam: Normal Neurological Exam Neurological Exam: Normal Psychiatric Exam Psychiatric Exam: Normal Results Results Group Beta Strep: Negative Blood Type: A+ Rubella Status: Immune Varicella Immunity: Immune Risk Assessment Risk for Shoulder Dystocia Historical/Initial OB: POSITIVE FOR: Pre- BMI>30; NEGATIVE FOR: Pelvic Abnormality, Previous Shoulder Dystocia or Previous Macrosomia Increased Risk?: Yes Risk for Pre-Eclampsia Daily Dose ASA Indicated: Yes Date Initiated/Initials: start at 12 wks. JK Yes, if one or more: NEGATIVE FOR: Hx Pre-E/Gest HTN, Chronic HTN, Multiple Gestation, Pre-gestational DM, Renal Disease, Systemic Lupus or APA Syndrome Yes, if 2 or more: POSITIVE FOR: Nulliparity and BMI>30; NEGATIVE FOR: Age>= 35 yrs, >10yr btwn pregnancies, ethinicty, Mother/Sister w/ Pre-E or Previous IUGR Risk for Post- Hemorrhage Initial: NEGATIVE FOR: Multiple Gestation, Previous PPH, Known Clotting Deficiency, Grand Multiparity or Anticoagulation At Risk?: No Risks Reviewed Risks Reviewed Upon Admission: Yes
[2024-04-09] VITALS (58 sets, daily range): BP systolic 122–142; BP diastolic 62–98; PULSE 67–147; RESP 16–17; TEMP 36.4–36.8; O2SAT 96–100; BMI 34.9
[2024-04-09] MEDS: AZITHROMYCIN 500 MG in Normal Saline 250 ML 250 MG IVPB (06:33)
[2024-04-09] MEDS: Normal Saline Flush 10 ML SYR IVP ×6 (06:38→23:14)
[2024-04-09] MEDS: Lactated Ringers 1,000 ML 200 ML IV ×2 (06:38→08:48)
--- NOTE | 2024-04-09 07:15 | W.ANESPRE ---
General Info Date of Service Date Performed: 04/09/24 Height: 5 ft 3.75 in Weight: 91.626 kg Body Mass Index (BMI): 34.9 Surgical Procedure: Operation Date: 04/09/24 07:40 Proposed Procedure Side Surgeon p Section Mary Sanchez MD Meds Allergies and Home Medications Allergies Allergy/AdvReac Type Severity Reaction Status Date / Time amoxicillin Allergy Mild Skin Rash Verified 04/08/24 14:47 Home Medication Medication Instructions Recorded vitamin no.180-ferrous 1 tab PO DAILY #90 tabs 08/28/23 fumarate 27 mg-folic acid 1 mg tablet ( Plus Vitamin-Mineral) ferrous sulfate 325 mg (65 mg 325 mg PO Q OTHER DAY #90 tabs 01/27/24 iron) tablet blood sugar diagnostic (FreeStyle #100 ea 02/04/24 Lite Strips) blood-glucose meter (FreeStyle #1 ea 02/04/24 Lite Meter kit) lancets 28 gauge (FreeStyle #100 ea 02/04/24 Lancets) insulin NPH isoph U-100 human 100 10 unit (0.1 mL) subcut QHS 02/26/24 unit/mL (3 mL) subcutaneous pen Gestational Diabetes #15 mL (Humulin N NPH U-100 Insulin KwikPen) pen needle, diabetic 31 gauge x #100 ea 02/28/2410/17 (1st Tier Unifine Pentips Plus) escitalopram oxalate 10 mg tablet 10 mg PO DAILY #30 tabs 03/04/24 (Lexapro) Current Visit Medications: Current Medications Generic Name Dose Route Start Last Admin Trade Name Freq PRN Reason Stop Dose Admin Citric Acid/Sodium Citrate 30 ml 04/09/24 06:00 Sodium Citrate 30 Ml Cup PO PREOP JONY Cefazolin Sodium/Dextrose 2 gm in 50 mls @ 100 mls/hr 04/09/24 06:00 Ancef Duplex IVPB PREOP JONY Azithromycin 500 mg/ Sodium 250 mls @ 250 mls/hr 04/09/24 06:00 04/09/24 06:33 Chloride IVPB 250 mls/hr PREOP JONY Administration Ringer's Solution 1,000 mls @ 200 mls/hr 04/09/24 06:00 04/09/24 06:38 IV 200 mls/hr INFUSION JONY Administration IV Miscellaneous Supplies 1 each 04/09/24 06:00 Iv Access IV DIRECTED JONY Sodium Chloride 0 ml 04/09/24 05:58 04/09/24 06:38 Normal Saline Flush 10 Ml Syr IVP 10 ml PRN PRN Administration Sodium Chloride 0 ml 04/09/24 08:30 Normal Saline Flush 10 Ml Syr IVP BID JONY Sodium Chloride 0 ml 04/09/24 05:58 Normal Saline 10 Ml Vial IJ DIRECTED PRN PFSH Active Problems Active Problems: Problem Status Onset Code Preoperative examination Z01.818 Failed external cephalic version O32.9XX0 Breech presentation O32.1XX0 Gestational diabetes mellitus (GDM) affecting , antepartum O24.419 Marijuana use F12.90 Anxiety and depression F41.9, F32.A Z34.90 Tobacco Smoking/Tobacco Use Status: Never Alcohol Alcohol Intake: never Substance Use Substance use: Never Substance use type: does not use Prental History History 1 Para 0 Hx # Term Pregnancies 0 Multiple births 0 Hx # Pregnancies 0 Ectopic pregnancies 0 AB induced 0 Hx Number of Living Children 0 AB spontaneous 0 Vital Signs and Lab Results Vital Signs Most Recent Vital Signs in EMR: Most Recent Vital Signs Temp Pulse BP Pulse Ox 36.7 C 88 122/82 98 04/09/24 06:54 04/09/24 06:54 04/09/24 06:54 04/09/24 06:54 Lab Results Blood Type / Crossmatch: Antibody Screen NEGATIVE 04/08/24 Complete Blood Count: White Blood Count 8.48 10^3/uL (4.4-10.8) 04/08/24 15:20 Red Blood Count 4.03 10^6/uL (3.93-5.22) 04/08/24 15:20 Hemoglobin 11.9 g/dL (11.2-15.7) 04/08/24 15:20 Hematocrit 36.1 % (36.0-46.0) 04/08/24 15:20 Platelet Count 199 10^3/uL (130-400) 04/08/24 15:20 Complete Metabolic Panel: Sodium 139 mmol/L (136-145) 04/08/24 15:20 Potassium 3.9 mmol/L (3.5-5.1) 04/08/24 15:20 Chloride 108 mmol/L (98-107) H 04/08/24 15:20 Carbon Dioxide 18.3 mmol/L (21.0-32.0) L 04/08/24 15:20 Liver Function Panel: No Data to Display Coagulation Panel: No Data to Display Cardiac Panel: No Data to Display Arterial Blood Gas: No Data to Display Venous Blood Gas: No Data to Display Pancreas Panel: No Data to Display Thyroid Panel: No Data to Display Infectious Disease: No Data to Display Blood Cultures: No Data to Display Toxicology Panel: No Data to Display Panel: No Data to Display Anesthesia Assessment and Plan Anesthesia History Personal History: No History of Anesthesia Complications Family History: No Family History of Anesthesia Complications Exercise Tolerance Exercise Tolerance: Metabolic Equivalents>4 Pertinent Negatives Pertinent Negatives: No Major Cardiovascular Symptoms or Complaints and No Major Pulmonary Symptoms or Complaints Cardiac & Pulmonary Exam Cardiac Exam: Normal S1/S2 Heart Sounds Pulmonary Exam: Clear Bilateral Breath Sounds Implantable Cardiac Device Does patient have a Pacemaker or an ICD?: No Airway Exam Known Difficult Airway: No Mallampati Class: 2 Mouth Opening: Normal (> 3cm) Thyromental Distance: Greater than 3 cm Neck Range of Motion: Full ROM Neck Circumference: Normal Teeth Condition: Normal Dentition ASA Classification ASA Score: ASA 2 Emergency Case?: No NPO Status NPO Status: Full Stomach Status Status: Confirmed Anesthesia Plan Resuscitation Status: Full Code Anesthesia Technique: Spinal Anesthesia Airway Planned: Natural Airway Pain Management: Intrathecal Analgesia Monitors Used: Standard Monitors Preoperative Comments:: BGL 86 RR 16
[2024-04-09] MEDS: ceFAZolin 2 GM/50 ML BAG IVPB (08:00)
[2024-04-09] MEDS: Bupivacaine 0.25% Pres-Free 30 ML VIAL (08:15)
[2024-04-09] MEDS: Oxytocin/Normal Saline 30 UNIT/500 ML BAG 95 UNITS IV (08:15)
[2024-04-09] MEDS: Ketorolac 30 MG/ML VIAL IVP ×3 (08:57→23:14)
--- NOTE | 2024-04-09 09:07 | W.PM.OBCSECT ---
Date of service: 04/09/24 Time of Service: 09:07 Operative Note Operative Note Delivery Method: Scheduled and Primary NTSV>37 Weeks: Yes DATE OF PROCEDURE: 04/09/24 PRE-OP DIAGNOSES: breech presentation. Unsuccessful external cephalic version POST-OP DIAGNOSES: same PROCEDURE: scheduled primary low transverse delivery at 38w6d EGA. SURGEON: Mary Sanchez Assisting Surgeon: Cleo Uribe Anesthesia: spinal Estimated blood loss (mL): 400 Pathology: other (cord blood collected and sent to lab) Complications: None Patient was transported to: floor Patient's condition: stable Indications: 24yo female at 38w6d EGA whose with a persistent breech presentation who was counseled to have a pLTCS. Pt underwent an unsuccessful external cephalic version on 03/25/24. Findings: Viable female infant in double footling breech presentation. Meconium stained amniotic fluid. No uterus, ovaries and fallopian tubes. Wt: 7lb7oz, 9/10. Parents intend to name her Evans. Procedure Description: Patient was taken to the operating room she is placed in the sitting position and spinal anesthesia was administered without difficulty. She was then placed in the dorsal supine position with a leftward tilt. SCDs and a Ontiveros catheter to gravity drainage were in place. A vaginal prep with Betadine was performed and the patient was prepped and draped in the usual sterile fashion. After a adequate level of anesthesia was achieved a Pfannenstiel skin incision was made approximately 2 cm superior to the pubic symphysis using a scalpel and the underlying subcutaneous tissue dissected using Bovie electrocautery to the level of the rectus fascia. The rectus fascia was then nicked in the midline and the fascial incision extended laterally using curved Garcia scissors. 2 Kassidy clamps were applied to the inferior rectus fascia and the rectus fascia was dissected off of the underlying rectus muscles using Bovie electrocautery and blunt technique. A similar technique was carried out on the superior rectus fascia. Rectus muscles were then in the midline and the peritoneum entered bluntly. The peritoneal incision was extended laterally using blunt technique. The vesicle-uterine peritoneum over lower uterine segment was incised with curved Garcia scissors and the bladder flap created bluntly. Scalpel was used to incise the lower uterine segment in a transverse fashion. The uterine incision was extended bluntly and the amniotic sac was ruptured with marcela meconium present. Both feet were grasped and delivered through the uterine and incisions. the legs and trunk were delivered to the level of the shoulder blades. The arms were then swept across the 's chest allowing the shoulders to be delivered followed by the head which as delivered atraumatically. The cord was doubly clamped and cut and the handed off to the waiting pediatric team. Cord bloods were obtained and the placenta was extracted with a combination of fundal massage and gentle cord traction. The uterus was exteriorized cleared of all clots and debris and the uterine incision reapproximated with a running lock suture of 0 Vicryl followed by a second imbricating suture of 0 Vicryl. Uterine incision was noted be hemostatic. The uterus was returned to the abdomen and the paracolic gutters cleared of all clots and debris. Uterine incision, the bladder flap, and the abdominal wall were inspected and noted to be hemostatic. The rectus fascia was reapproximated with a running suture of 0 Vicryl. space within the subcutaneous tissue closed with a running suture of 2-0 Vicryl. The skin incision was reapproximated with a subcuticular closure of 4-0 Monocryl. Steri-Strips were placed over the incision and the incision covered with a dry sterile Mepilex dressing.. The uterus was massaged for any remaining clots and debris. The patient was transported to recovery area in stable condition. All sponge, lap, and needle counts correct x2.
[2024-04-09] MEDS: Naloxone 0.4 MG/ML VIAL IVP ×2 (09:48→11:11)
[2024-04-09] MEDS: Metoclopramide 10 MG/2 ML VIAL IVP (13:48)
--- NOTE | 2024-04-09 14:46 | W.ANESPOSTOP ---
Postoperative Evaluation Date, Time and Location Date Performed: 04/09/24 Time Performed: 14:30 Patient Location: Day Surgery Unit Vital Signs Most Recent Imported Vital Signs: Most Recent Vital Signs Temp Pulse Resp BP Pulse Ox 36.7 C 147 H 16 138/86 96 04/09/24 11:00 04/09/24 12:39 04/09/24 11:00 04/09/24 12:03 04/09/24 12:39 Pain Score Most Recent Pain Score: Most Recent Pain Score Pain Level [Head] 0 04/09/24 11:00 Pain Level 0 04/09/24 11:00 Assessment Mental Status: Awake (Alert & Oriented to Patient Baseline) Airway and Respiratory Function: Patent airway with normal (patient baseline) respiratory exam Cardiovascular Function: Hemodynamically Stable Hydration Status: Adequately Hydrated Nausea & Vomiting: No Nausea or Vomiting Pain: Pt. Denies Any Pain Peripheral Nerve Block: Patient did not receive a nerve block Postoperative Comments:: Spinal is wearing off. Spoke with RN regarding HR and reviewed trend prior to what appears to be mis-documentation. RN to follow up.
[2024-04-10] VITALS (8 sets, daily range): BP systolic 130–144; BP diastolic 88–95; PULSE 69–88; RESP 16–17; TEMP 36.3–36.9; O2SAT 97–98
[2024-04-10] MEDS: Acetaminophen 325 MG TAB 650 MG PO ×4 (04:53→23:39)
[2024-04-10] MEDS: Docusate Sodium 100 MG CAP PO ×2 (04:53→07:35)
[2024-04-10] MEDS: Escitalopram 10 MG TAB PO (07:35)
[2024-04-10] MEDS: oxyCODONE 5 mg/Acetaminophen 325 mg TAB PO ×2 (07:35→18:45)
--- NOTE | 2024-04-10 10:33 | DSE_ITS ---
Date of service: 04/11/24 Time of Service: 08:57 DS: Diagnosis Discharge Diagnosis (1) Breech presentation: Status: Acute (2) Failed external cephalic version: Status: Acute (3) Gestational diabetes mellitus (GDM) affecting , antepartum: Status: Acute (4) delivery indicated due to breech presentation: Status: Acute Discharge Plan Disposition Patient Disposition: Home Condition: Good Discharge Details Reason For Visit: Delivery Admit Date/Time: 04/09/24 06:00 Admit Provider: Mary Sanchez Attending Provider: Mary Sanchez Primary Care Provider: Amy Motley Hospital Course Hospital Course: Patient was admitted the morning of 04/09/2024 at the breech presentation we confirmed by bedside ultrasound and underwent a low transverse delivery of a double footling breech without complications. Postop course was unremarkable. She was discharged home on postop day #2 successfully breast- feeding, passing flatus and independently performing activities of daily living. Patient's evening dose of insulin will be discontinued. [facility] 1 week for removal of Mepilex dressing. Discharge medications will include ibuprofen 600 mg every 6 hours and acetaminophen 500 mg every 6 hours. Patient will receive a prescription for a limited number of Percocet 5/325-tablets to be taken every 6 hours as needed for pain. Home Meds and New Rx's Prescriptions: Continued Plus Vitamin-Mineral 27 mg iron- 1 mg tablet 1 tab PO DAILY Qty: 90 4RF escitalopram oxalate [Lexapro] 10 mg tablet 10 mg PO DAILY Qty: 30 8RF ferrous sulfate 325 mg (65 mg iron) tablet 325 mg PO Q OTHER DAY Qty: 90 2RF Discontinued Humulin N NPH Insulin KwikPen 100 unit/mL (3 mL) insulin pen 10 unit subcut QHS Qty: 15 3RF No Action (DME) blood-glucose meter [FreeStyle Lite Meter] Kit See Rx Instructions .ROUTE .MEDSUPPLY Qty: 1 0RF Rx Instructions: As directed (DME) FreeStyle Lite Strips Strip See Rx Instructions .ROUTE .MEDSUPPLY Qty: 100 3RF Rx Instructions: testing QID (DME) lancets [FreeStyle Lancets] 28 gauge misc See Rx Instructions .ROUTE .MEDSUPPLY Qty: 100 3RF Rx Instructions: testing QID (DME) pen needle, diabetic [1st Tier Unifine Pentips Plus] 31 gauge x 1/4 needle See Rx Instructions .Route Qty: 100 0RF Rx Instructions: at bedtime Discharge Instructions Additional Instructions: Take a half a Percocet tablet for pain not relieved with ibuprofen or acetaminophen. Keep your appointment next week with Dr. Uribe for removal of your Mepilex dressing. Stand Alone Forms: BC Instructions, BC Discharge Instruc Activity:: Activity as Tolerated Equipment/Supplies:: No Equipment Needed Diet:: As Tolerated Discharge Orders Discharge Orders: Discharge Order (Routine); Ordered 04/11/24 Ordered By: Mary Sanchez OB:DS Summary Summary Episiotomy Description: None Laceration Description: None Laceration Extension: N/A Contraception Discussed Contraception Discussed: Yes Contraceptive Plan: Undecided (Patient has used Depo in the past. I recommended a Mirena IUD), [place] Gender-Baby A: Female weight: 7 lb 6.873 oz Disposition of Baby A: Home (She will be named Grace) Status at Discharge Functional status at discharge: independent ambulation Overall status at discharge: patient is progressing back to baseline Mental Status: mental status grossly normal Speech and Movement: speech and movement normal Mood: congruent mood Affect: normal affect Quality:SDOH Health Related Social Needs: No Data to Display Exam Physical Exam Vital signs: Temp Pulse Resp BP Pulse Ox 98.1 F 80 16 130/90 97 04/10/24 07:50 04/10/24 09:20 04/10/24 09:20 04/10/24 09:20 04/10/24 09:20 Vital Signs Reviewed: Yes Constitutional Constitutional: no acute distress HEENT Exam HEENT Exam: Normal Neck Exam Neck Exam: Normal Respiratory Exam Respiratory Exam: Normal Cardiovascular Exam Cardiovascular Exam: Normal Abdominal Exam Abdomen: Other (Mepilex dressing clean dry and intact) Fundal Exam Fundus: Below Umbilicus and Firm Rectal Exam Rectal Exam: Not Done Exam Patient deferred: external exam, groin exam and perineal exam Extremities Exam Extremity Exam: Normal and Edema (1+ none pitting 3 tibial edema) Skin Exam Skin Exam: Normal Neurological Exam Neurological Exam: Normal Psychiatric Exam Psychiatric Exam: Normal PFSH All Active Problems (Updated 04/11/24 @ 08:58 by Mary Sanchez MD) delivery indicated due to breech presentation (Acute) 04/09/24. pLTCS for breech presentation after unsuccessful ECV. Failed external cephalic version (Acute) Breech presentation (Acute) Gestational diabetes mellitus (GDM) affecting , antepartum (Acute) Marijuana use (Acute) Anxiety and depression (Chronic) (Acute) Family History (Updated 02/26/24 @ 08:52 by Idalia Farr CNM) Maternal Grandfather Diabetes Maternal Cousin Diabetes Type 1 Social History (Updated 04/11/24 @ 09:07 by Mary Sanchez MD) Smoking/Tobacco Use Status: Never Smoking risk assessment performed?: Yes Alcohol Intake: never Drug use: Never Substance use type: does not use Household members: significant other, children and other Details: Keny [place] Housing: house Number of Children: 1 Do you feel safe at home: Yes Do you feel safe in your relationship?: Yes History History 1 Para 0 Hx # Term Pregnancies 0 Multiple births 0 Hx # Pregnancies 0 Ectopic pregnancies 0 AB induced 0 Hx Number of Living Children 0 AB spontaneous 0 DS: Data Vitals/I&O Vitals and I&O: Vital Signs Temperature 98.1 F 04/10/24 07:50 Temperature Source Oral 04/10/24 07:50 Pulse 80 04/10/24 09:20 Pulse Rhythm Regular 04/10/24 07:50 Respiratory Rate 16 04/10/24 09:20 Respiratory Depth Normal 04/09/24 19:35 Blood Pressure 130/90 04/10/24 09:20 Blood Pressure Mean 103 04/10/24 09:20 Pulse Oximetry 97 04/10/24 09:20 Pain Level 1 04/10/24 09:20 Comment Patient reported feeling off, states she feels as if my heart is slowing down, I feel a little loopy Explained she could be feeling this way from the 1 PO Percocet she was given at 07:30. Did Apical HR, no abnormal sounds, placed ice pack on back neck, told her to try to take a nap. 04/10/24 09:20 Intake & Output 04/09/24 04/09/24 04/10/24 11:59 23:59 11:59 Intake Total 1050 / 2750 1700 / 2750 200 / 200 Output Total 2150 / 2999 850 / 2999 2272 / 227 Balance -1100 / -250 850 / -250 -2071 / Weight 202 lb Intake: IV 1050 / 1550 500 / 1550 Oral 1200 / 1200 200 / 200 Output: Urine 1150 / 1999 / 1999 2271 / 2271 Estimated Blood Loss 400 / 400 Blood 600 / 600 Other: Urine Color Yellow Yellow Straw Urine Appearance Clear Clear Clear Urine Odor None Voiding Methods Toilet
--- NOTE | 2024-04-10 10:36 | W.PM.OBPNV1 ---
Date of service: 04/10/24 Time of Service: 10:36 Assessment and Plan Assessment and plan (1) delivery indicated due to breech presentation: Status: Acute Assessment and plan: POD1 pLTCS. Pain well controlled, Subjective Subjective Interval history: POD1 pLTCS for persistent breech presentation. Patient comments: Pain well controlled, Incisional pain, Tolerating diet and Flatus present Patient's Mood: positive [place] baby status: Doing well, Nursing well, Rooming in and Strong Bonding Observed feeding status: Exclusively breast feeding Exam Physical Exam Vital signs: Temp Pulse Resp BP Pulse Ox 98.1 F 80 16 130/90 97 04/10/24 07:50 04/10/24 09:20 04/10/24 10:00 04/10/24 09:20 04/10/24 09:20 Vital Signs Reviewed: Yes Constitutional Constitutional: no acute distress HEENT Exam HEENT Exam: Normal Neck Exam Neck Exam: Normal Respiratory Exam Respiratory Exam: Normal Cardiovascular Exam Cardiovascular Exam: Normal Abdominal Exam Comments: Mepilex dressing clean dry and intact. Fundal Exam Fundus: Below Umbilicus and Firm Rectal Exam Rectal Exam: Not Done Extremities Exam Extremity Exam: Not Done Back/Spine/Pelvis Exam Back Exam: Normal Skin Exam Skin Exam: Normal Neurological Exam Neurological Exam: Normal Psychiatric Exam Psychiatric Exam: Normal
[2024-04-10] MEDS: Ibuprofen 600 MG TAB PO ×3 (12:29→23:39)
[2024-04-11 03:00] VITALS: BP 142/95; PULSE 72; RESP 17; TEMP 36.8; O2SAT 98
[2024-04-11] MEDS: Acetaminophen 325 MG TAB 650 MG PO (05:41)
[2024-04-11] MEDS: Ibuprofen 600 MG TAB PO (05:41)
[2024-04-11 06:29] LABS: HCT 29.1 % (36.0-46.0); HGB 9.8 g/dL (11.2-15.7); MCH 30.1 pg (27.0-33.0); MCHC 33.7 % (32.0-36.0); MCV 89 fL (80-95); MPV 10.7 fL (8.0-11.0); Platelet Count 213 10^3/uL (130-400); RBC 3.26 10^6/uL (3.93-5.22); RDW 16.5 % (11.7-14.6); RDW-SD 54.1 fL; WBC 7.49 10^3/uL (4.4-10.8)
[2024-04-11 08:10] VITALS: BP 139/98; PULSE 78; RESP 16; TEMP 36.8; O2SAT 98
[2024-04-11] MEDS: Escitalopram 10 MG TAB PO (08:55)
[2024-04-11] MEDS: Docusate Sodium 100 MG CAP PO (08:55)
== END 2024-04-11 11:00 | disposition home or self-care (01) | DRG 788 ==
PROVIDERS: Admitting Provider Obstetrics & Gynecology Gynecology; PCP Nurse Practitioner Family; Visit Provider Obstetrics & Gynecology Gynecology
PROC: 10D00Z1 Extraction of Products of Conception, Low, Open Approach (ICD-10-PCS; CPT 59514; principal; 2024-04-09 07:30)
DX: O32.1XX0 Maternal care for breech presentation, not applicable or unspecified (principal); Z37.0 Single live birth; O77.0 Labor and delivery complicated by meconium in amniotic fluid; O24.420 Gestational diabetes mellitus in childbirth, diet controlled; O99.344 Other mental disorders complicating childbirth; F41.8 Other specified anxiety disorders; Z3A.39 39 weeks gestation of pregnancy
CPT/HCPCS: 59514; 36415; 85027; J0131; J0456; J0665; J0690; J1100; J1885; J2274; J2310; J2371; J2405; J2765; J3010